=== PATIENT | male | born 1975 | race Caucasian/White ===

== ENCOUNTER 2018-10-10 12:44 | Emergency (ER) | payer MEDICAID ==
[~2018-10-10] VITALS: Ht 193 cm; Wt 81.0 kg
[~2018-10-10 12:44] MED LIST: ASPI-1265 PO; CARV-49 PO; FURO-150 PO; LISI-600 PO; POTA10TA10 PO; RIFA300C4 PO
[2018-10-10 13:34] VITALS: BP 111/81
[2018-10-10] MEDS ORDERED: ACET-3068 PO (15:29)
== END 2018-10-10 15:59 | disposition home or self-care (01) ==
LOC: ER 12:46
DX: S46.911A Strain of unspecified muscle, fascia and tendon at shoulder and upper arm level, right arm, initial encounter (principal); I50.9 Heart failure, unspecified; F12.90 Cannabis use, unspecified, uncomplicated; F15.90 Other stimulant use, unspecified, uncomplicated; Z88.8 Allergy status to other drugs, medicaments and biological substances; Z79.82 Long term (current) use of aspirin; Z79.899 Other long term (current) drug therapy; Z59.0 Homelessness; Z56.0 Unemployment, unspecified; V19.9XXA Pedal cyclist (driver) (passenger) injured in unspecified traffic accident, initial encounter; Y93.89 Activity, other specified; Y92.488 Other paved roadways as the place of occurrence of the external cause; Y99.8 Other external cause status
CPT/HCPCS: 29105; 73030; 99283

== ENCOUNTER 2019-05-22 22:07 | Inpatient (IN) | payer MEDICAID ==
[~2019-05-22] VITALS: Ht 190.5 cm; Wt 84.0 kg
[2019-05-22 22:50] LABS: BASOPHILS # (AUTO) 0.1 X10'3 (0-0.2); BASOPHILS % (AUTO) 1.1 % (0-1); EOSINOPHILS # (AUTO) 0.1 X10'3 (0-0.9); EOSINOPHILS % (AUTO) 1.4 % (0-6); HEMOGLOBIN 15.4 g/dl (14.0-17.9); LYMPHOCYTES # (AUTO) 1.3 X10'3 (1.1-4.8); LYMPHOCYTES % (AUTO) 20.8 % (21-51); MEAN CORPUSCULAR HGB CONC 33.4 g/dL (33.0-36.5); MEAN CORPUSCULAR VOLUME 89.8 FL (78-98); MEAN PLATELET VOLUME 8.1 FL (7.4-10.4); MONOCYTES # (AUTO) 0.3 X10'3 (0-0.9); MONOCYTES % (AUTO) 5.5 % (2-12); NEUTROPHILS # (AUTO) 4.3 X10'3 (1.8-7.7); NEUTROPHILS % (AUTO) 71.2 % (42-75); PLATELET COUNT 234 X10'3 (140-440); RED BLOOD COUNT 5.12 X10'6 (4.70-6.10); WHITE BLOOD COUNT 6.1 X10'3 (4.5-11.0)
[2019-05-22] MEDS ORDERED: metoprolol tartrate 1mg/ml inj IV ONE (23:00)
[2019-05-22 23:10] LABS: ALBUMIN 4.2 G/DL (3.4-5.0); ALKALINE PHOSPHATASE 177 IU/L (46-116); ANION GAP 11 (8-16); ASPARTATE AMINO TRANSFERASE 129 U/L (10-37); BILIRUBIN,TOTAL 2.4 MG/DL (0.1-1.0); BLOOD UREA NITROGEN 27 MG/DL (7-18); CHLORIDE 101 MMOL/L (99-107); CREATININE 1.04 MG/DL (0.60-1.10); GLUCOSE 94 MG/DL (70-104); POTASSIUM 4.6 MMOL/L (3.5-5.1); SODIUM 137 MMOL/L (135-145); TOTAL PROTEIN 8.3 G/DL (6.4-8.2); TROPONIN I 0.06 NG/ML (0.0-0.05); eGFR 78 ML/MIN
[2019-05-22 23:30] LABS: ALANINE AMINOTRANSFERASE 120 U/L (12-78); ETHANOL < 0.010 GM/DL (0.0-0.010)
[2019-05-22] MEDS ORDERED: CefTRIAXone 2gm/D5W 50ml 50 ML IV ONE (23:35)
[2019-05-22 23:40] LABS: CLARITY,URINE CLEAR (Clear); COLOR,URINE YELLOW (Yellow); GLUCOSE, URINE NEGATIVE (Neg); KETONES,URINE NEGATIVE (Neg); LEUKOCYTE ESTERASE ,URINE NEGATIVE (Neg); NITRITES, URINE NEGATIVE (Neg); OCCULT BLOOD,URINE NEGATIVE (Neg); PH,URINE 5.5 (4.8-8.0); PROTEIN,URINE NEGATIVE (Neg); UROBILINOGEN,URINE 0.2 E.U/dL (0.2-1.0)
[2019-05-22] MEDS ORDERED: VANCOMYCIN 1gm/H2O 200ml PB 200 ML IV ONE (23:40)
[2019-05-22 23:42] LABS: URINE AMPHETAMINE SCREEN POSITIVE (Neg); URINE BARBITUATE SCREEN NEGATIVE (Neg); URINE BENZODIAZEPINES SCREEN NEGATIVE (Neg); URINE CANNABINOID SCREEN POSITIVE (Neg); URINE COCAINE SCREEN NEGATIVE (Neg); URINE METHADONE SCREEN NEGATIVE (Neg); URINE OPIATE SCREEN NEGATIVE (Neg); URINE PHENCYCLIDINE SCREEN NEGATIVE (Neg)
[2019-05-22 23:48] LABS: UA COLLECTION TYPE CLN CATCH MIDSTREAM
[2019-05-23] MEDS ORDERED: potassium Cl 20 mEq SR tablet PO PRN ×2 (00:10)
[2019-05-23] MEDS ORDERED: magnesium hydroxide 30ml (MOM) UD suspension PO PRN (00:10)
[2019-05-23] MEDS ORDERED: magnesium Cl slow-release 64mg tablet PO PRN (00:10)
[2019-05-23] MEDS ORDERED: nitroGLYCERIN 0.4mg SUBLingual tab SL PRN (00:10)
[2019-05-23] MEDS ORDERED: potassium CL 10mEq/100ml bag 100 ML IV PRN ×2 (00:10)
[2019-05-23] MEDS ORDERED: mag hydrox/Alum hydrox/simeth 30ml oral suspension PO PRN (00:10)
[2019-05-23] MEDS ORDERED: ondansetron/PF 4mg/2ml inj IV PRN (00:10)
[2019-05-23] MEDS ORDERED: magnesium 4gm in 100ml NS 100 ML IV PRN (00:10)
[2019-05-23] MEDS ORDERED: acetaminophen 325mg tablet PO PRN ×2 (00:10)
[2019-05-23] MEDS ORDERED: magnesium 2GM in 50ml NS 50 ML IV PRN (00:10)
--- NOTE | 2019-05-23 00:45 | NUR ---
Patient in room ED 14. I have received report from Quincy JEREZ and had the opportunity to ask questions and assume patient care.
[2019-05-23] MEDS ORDERED: aspirin 81mg tab.chew PO ONE (00:55)
[2019-05-23] MEDS ORDERED: enoxaparin 60mg/0.6ml syringe SUBCUT ONE (00:55)
[2019-05-23 01:00] VITALS: BP 115/96
[2019-05-23] MEDS ORDERED: nicotine 21mg patch - 24 hr TD ONE (01:00)
[2019-05-23] MEDS ORDERED: ipratropium/albuterol 3ml nebule NEB PRN (01:00)
[2019-05-23] MEDS: LORazepam 2 mg/ml vial IV PRN ×2 (01:14→07:52)
--- NOTE | 2019-05-23 02:07 | NUR ---
Patient arrived to the floor at 0100. VSS. Placed on tele. MRSA swab collected. Oriented to room, unit policies, medication times, vital signs times, and meal times. 2 RN skin check performed.
--- NOTE | 2019-05-23 05:03 | NUR ---
PAGER ID: [phone] MESSAGE: Hans Chatman [id number]- Pt is reporting a lot of pain. Only has tylenol for pain. States he takes norco at home. -Ying JEREZ [id number]
[2019-05-23 05:09] LABS: ALBUMIN 3.3 G/DL (3.4-5.0); ANION GAP 8 (8-16); BLOOD UREA NITROGEN 24 MG/DL (7-18); BUN/CREATININE RATIO 26.1 (5.4-32.0); CALCIUM 8.6 MG/DL (8.5-10.1); CHLORIDE 104 MMOL/L (99-107); CREATININE 0.92 MG/DL (0.60-1.10); GLUCOSE 98 MG/DL (70-104); SODIUM 135 MMOL/L (135-145); TOTAL CARBON DIOXIDE 22.8 MMOL/L (24-32); eGFR 90 ML/MIN
[2019-05-23] MEDS: HYDROcodone/acetaminophen 5mg/325mg tablet PO PRN ×2 (05:26→11:05)
--- NOTE | 2019-05-23 06:26 | NUR ---
Patient in room PCU 3014. I have received report from Ying and had the opportunity to ask questions and assume patient care.
--- NOTE | 2019-05-23 06:28 | NUR ---
Problems reprioritized. Patient report given, questions answered & plan of care reviewed with Rebeca JEREZ.
[2019-05-23 07:00] VITALS: BP 127/94
[2019-05-23] MEDS: furosemide 40mg/4ml inj IV SCH ×2 (07:52→19:27)
[2019-05-23] MEDS: carvedilol 6.25mg tablet PO SCH ×2 (07:53→19:27)
[2019-05-23] MEDS: enoxaparin 40mg/0.4ml syringe SQ SCH (07:53)
[2019-05-23] MEDS: lisinopril 20mg tablet PO SCH (07:54)
[2019-05-23] MEDS: aspirin 81mg tab.chew PO SCH (07:55)
[2019-05-23] MEDS: K and/or MAG REPLACEMENT MC SCH ×2 (08:00→19:27)
[2019-05-23] MEDS ORDERED: FLU VACC QS2019-20 36MOS UP/PF 60 MCG/0.5 ML SYRINGE IMVAC ONE (10:00)
[2019-05-23] MEDS ORDERED: pneumococcal 23-VAL P-sac vacc 25 mcg/0.5ml vial IMVAC ONE (10:00)
--- NOTE | 2019-05-23 10:06 | NUR ---
3028B [facility] called and wanted to make sure you were aware of a new 5 mm nodule in the right lower lobe F/U recommended. Rebeca JEREZ [id number]
[2019-05-23 11:00] VITALS: BP 119/80
[2019-05-23 15:00] VITALS: BP 121/83
[2019-05-23] MEDS: LORazepam 1 MG tablet PO PRN (17:47)
[2019-05-23 18:00] VITALS: BP 128/83
--- NOTE | 2019-05-23 18:10 | NUR ---
Patient in room PCU 3028. I have received report from Rebeca JEREZ and had the opportunity to ask questions and assume patient care.
--- NOTE | 2019-05-23 18:25 | NUR ---
Problems reprioritized. Patient report given, questions answered & plan of care reviewed with Ying.
--- NOTE | 2019-05-23 20:20 | NUR ---
PAGER ID: [phone] MESSAGE: Hans Chatman [id number]- Pt just had a run of wide complex SVT at a rate of about 160 that lasted approximately 15 seconds. Pt is asymptomatic at this time. -Ying JEREZ [id number]
[2019-05-23 22:00] VITALS: BP 114/75
[2019-05-24 03:00] VITALS: BP 103/70
[2019-05-24 05:11] LABS: BASOPHILS # (AUTO) 0.1 X10'3 (0-0.2); EOSINOPHILS # (AUTO) 0.1 X10'3 (0-0.9); EOSINOPHILS % (AUTO) 1.7 % (0-6); LYMPHOCYTES # (AUTO) 1.7 X10'3 (1.1-4.8); MEAN CORPUSCULAR HEMOGLOBIN 30.3 PG (27.0-31.0); MEAN PLATELET VOLUME 8.1 FL (7.4-10.4); MONOCYTES # (AUTO) 0.5 X10'3 (0-0.9); WHITE BLOOD COUNT 6.1 X10'3 (4.5-11.0)
[2019-05-24 05:15] LABS: HEMATOCRIT 40.6 % (42.0-52.0); LYMPHOCYTES % (AUTO) 27.3 % (21-51); MEAN CORPUSCULAR HGB CONC 34.4 g/dL (33.0-36.5); MONOCYTES % (AUTO) 7.5 % (2-12); NEUTROPHILS # (AUTO) 3.8 X10'3 (1.8-7.7); NEUTROPHILS % (AUTO) 62.5 % (42-75); PLATELET COUNT 221 X10'3 (140-440); RED BLOOD COUNT 4.61 X10'6 (4.70-6.10); RED CELL DISTRIBUTION WIDTH 14.9 % (11.5-14.5)
[2019-05-24 05:25] LABS: ALBUMIN 3.2 G/DL (3.4-5.0); ANION GAP 9 (8-16); BLOOD UREA NITROGEN 27 MG/DL (7-18); CALCIUM 8.5 MG/DL (8.5-10.1); CHLORIDE 103 MMOL/L (99-107); CREATININE 1.08 MG/DL (0.60-1.10); GLUCOSE 95 MG/DL (70-104); POTASSIUM 3.8 MMOL/L (3.5-5.1); SODIUM 136 MMOL/L (135-145); TOTAL CARBON DIOXIDE 24.2 MMOL/L (24-32); eGFR 75 ML/MIN
[2019-05-24 06:00] VITALS: BP 118/88
--- NOTE | 2019-05-24 06:30 | NUR ---
Problems reprioritized. Patient report given, questions answered & plan of care reviewed with Pamela JEREZ.
--- NOTE | 2019-05-24 06:45 | NUR ---
Patient in room PCU 3028. I have received report from Ying JEREZ and had the opportunity to ask questions and assume patient care.
[2019-05-24] MEDS: HYDROcodone/acetaminophen 5mg/325mg tablet PO PRN ×2 (07:12→18:19)
[2019-05-24] MEDS: enoxaparin 40mg/0.4ml syringe SQ SCH (08:39)
[2019-05-24] MEDS: furosemide 40mg/4ml inj IV SCH ×2 (08:39→19:44)
[2019-05-24] MEDS: aspirin 81mg tab.chew PO SCH (08:42)
[2019-05-24] MEDS: lisinopril 20mg tablet PO SCH (08:42)
[2019-05-24] MEDS: carvedilol 6.25mg tablet PO SCH ×2 (08:42→19:44)
[2019-05-24] MEDS: K and/or MAG REPLACEMENT MC SCH ×2 (08:50→20:00)
[2019-05-24 11:00] VITALS: BP 97/71
[2019-05-24 18:30] VITALS: BP 93/62
--- NOTE | 2019-05-24 18:55 | NUR ---
Patient in room PCU 3028b. I have received report from MERI Santiago and had the opportunity to ask questions and assume patient care. Patient stable at this time and will continue to monitor closely.
[2019-05-24] MEDS: LORazepam 1 MG tablet PO PRN (20:03)
[2019-05-24 23:00] VITALS: BP 95/65
[2019-05-25 03:00] VITALS: BP 102/70
[2019-05-25 05:18] LABS: EOSINOPHILS # (AUTO) 0.1 X10'3 (0-0.9); EOSINOPHILS % (AUTO) 2.5 % (0-6); HEMOGLOBIN 14.4 g/dl (14.0-17.9); LYMPHOCYTES # (AUTO) 1.8 X10'3 (1.1-4.8); MEAN CORPUSCULAR VOLUME 87.7 FL (78-98)
[2019-05-25 05:22] LABS: BASOPHILS % (AUTO) 0.3 % (0-1); HEMATOCRIT 41.5 % (42.0-52.0); LYMPHOCYTES % (AUTO) 34.2 % (21-51); MEAN CORPUSCULAR HEMOGLOBIN 30.4 PG (27.0-31.0); MEAN CORPUSCULAR HGB CONC 34.7 g/dL (33.0-36.5); MEAN PLATELET VOLUME 8.3 FL (7.4-10.4); MONOCYTES # (AUTO) 0.5 X10'3 (0-0.9); MONOCYTES % (AUTO) 10.3 % (2-12); NEUTROPHILS # (AUTO) 2.8 X10'3 (1.8-7.7); NEUTROPHILS % (AUTO) 52.7 % (42-75); PLATELET COUNT 255 X10'3 (140-440); RED BLOOD COUNT 4.74 X10'6 (4.70-6.10); RED CELL DISTRIBUTION WIDTH 14.9 % (11.5-14.5); WHITE BLOOD COUNT 5.3 X10'3 (4.5-11.0)
[2019-05-25 05:30] LABS: ALBUMIN 3.4 G/DL (3.4-5.0); ANION GAP 7 (8-16); BLOOD UREA NITROGEN 33 MG/DL (7-18); BUN/CREATININE RATIO 32.7 (5.4-32.0); CALCIUM 8.8 MG/DL (8.5-10.1); CHLORIDE 102 MMOL/L (99-107); CREATININE 1.01 MG/DL (0.60-1.10); GLUCOSE 89 MG/DL (70-104); MAGNESIUM 2.1 MG/DL (1.5-2.4); SODIUM 135 MMOL/L (135-145); eGFR 81 ML/MIN
[2019-05-25 06:00] VITALS: BP 107/77
--- NOTE | 2019-05-25 06:37 | NUR ---
Problems reprioritized. Patient report given, questions answered & plan of care reviewed with MERI MICHAUD.
--- NOTE | 2019-05-25 07:02 | NUR ---
Patient in room PCU 3028B. I have received report from Diallo JEREZ and had the opportunity to ask questions and assume patient care.
[2019-05-25] MEDS: K and/or MAG REPLACEMENT MC SCH (08:00)
[2019-05-25] MEDS: carvedilol 6.25mg tablet PO SCH (08:21)
[2019-05-25] MEDS: furosemide 40mg/4ml inj IV SCH (08:21)
[2019-05-25] MEDS: aspirin 81mg tab.chew PO SCH (08:22)
[2019-05-25] MEDS: lisinopril 20mg tablet PO SCH (08:22)
[2019-05-25] MEDS: enoxaparin 40mg/0.4ml syringe SQ SCH (08:23)
[2019-05-25] MEDS: LORazepam 1 MG tablet PO PRN (08:31)
[2019-05-25 11:00] VITALS: BP 98/67
--- NOTE | 2019-05-25 13:35 | NUR ---
Relieved for break, report given to tio Driscoll RN, to assume care for 30 mins
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
[2019-05-25] MEDS: LORazepam 2 mg/ml vial IV PRN (14:15)
--- NOTE | 2019-05-25 14:21 | NUR ---
Reassumed care of patient from relief RN
[2019-05-25 15:00] VITALS: BP 99/73
--- NOTE | 2019-05-25 18:45 | NUR ---
Per MD order, patient is stable for discharge home. Patient has been fitted with lifevest and given instructions by them. Discharge packet printed and reviewed with patient and family at bedside. All questions answered. No new prescriptions. IV removed, tele monitor removed. All belongings sent with patient. Patient declined wheelchair escort, ambulatory out of unit without difficulty. Patient discharged home with family, all belongings sent with patient.
== END 2019-05-25 18:00 | disposition home or self-care (01) | DRG 194 ==
LOC: ER 22:08 → ED HOLD 05-23 00:29 → PCU 3S 05-23 00:59
PROVIDERS: ADMIT Hospitalist; ATTEND Family Medicine
DX: I50.23 Acute on chronic systolic (congestive) heart failure (principal); I24.8 Other forms of acute ischemic heart disease; I42.7 Cardiomyopathy due to drug and external agent; F17.210 Nicotine dependence, cigarettes, uncomplicated; F41.9 Anxiety disorder, unspecified; F12.10 Cannabis abuse, uncomplicated; Z59.0 Homelessness; Z28.21 Immunization not carried out because of patient refusal; Z88.8 Allergy status to other drugs, medicaments and biological substances; Z79.899 Other long term (current) drug therapy; Z79.82 Long term (current) use of aspirin
CPT/HCPCS: 36415; 71045; 80048; 80053; 80305; 80320; 81003; 83605; 83735; 83880; 84145; 84484; 85025; 87040; 87081; 93005; 93306; 94760; 96365; 99285; G0378; J0696; J1650; J1940; J2060; J3370; Q2037

== ENCOUNTER 2019-06-10 02:11 | Emergency (ER) | payer MEDICAID ==
[~2019-06-10] VITALS: Ht 193 cm; Wt 86.4 kg
[~2019-06-10 02:11] MED LIST changes: -RIFA300C4 PO
[2019-06-10] MEDS ORDERED: LORazepam 2 mg/ml vial IV ONE (02:35)
[2019-06-10 03:14] LABS: ALANINE AMINOTRANSFERASE 98 U/L (12-78); ALBUMIN 3.4 G/DL (3.4-5.0); ALKALINE PHOSPHATASE 134 IU/L (46-116); ANION GAP 15 (8-16); ASPARTATE AMINO TRANSFERASE 80 U/L (10-37); BILIRUBIN,TOTAL 2.3 MG/DL (0.1-1.0); BLOOD UREA NITROGEN 28 MG/DL (7-18); BUN/CREATININE RATIO 22.6 (5.4-32.0); CALCIUM 8.5 MG/DL (8.5-10.1); CHLORIDE 105 MMOL/L (99-107); CREATININE 1.24 MG/DL (0.60-1.10); POTASSIUM 4.2 MMOL/L (3.5-5.1); SODIUM 141 MMOL/L (135-145); TOTAL CARBON DIOXIDE 21.1 MMOL/L (24-32); TOTAL PROTEIN 6.8 G/DL (6.4-8.2); eGFR 64 ML/MIN
[2019-06-10 03:16] LABS: GLUCOSE 138 MG/DL (70-104)
[2019-06-10 03:18] LABS: BASOPHILS # (AUTO) 0.1 X10'3 (0-0.2); BASOPHILS % (AUTO) 1.3 % (0-1); EOSINOPHILS # (AUTO) 0.1 X10'3 (0-0.9); EOSINOPHILS % (AUTO) 1.8 % (0-6); HEMATOCRIT 41.2 % (42.0-52.0); LYMPHOCYTES # (AUTO) 1.9 X10'3 (1.1-4.8); LYMPHOCYTES % (AUTO) 26.9 % (21-51); MEAN CORPUSCULAR VOLUME 88.1 FL (78-98); MEAN PLATELET VOLUME 8.4 FL (7.4-10.4); MONOCYTES # (AUTO) 0.6 X10'3 (0-0.9); MONOCYTES % (AUTO) 8.3 % (2-12); NEUTROPHILS # (AUTO) 4.5 X10'3 (1.8-7.7); NEUTROPHILS % (AUTO) 61.7 % (42-75); PLATELET COUNT 202 X10'3 (140-440); RED BLOOD COUNT 4.68 X10'6 (4.70-6.10); RED CELL DISTRIBUTION WIDTH 15.3 % (11.5-14.5); WHITE BLOOD COUNT 7.2 X10'3 (4.5-11.0)
[2019-06-10] MEDS ORDERED: furosemide 10 MG/1 ML 10ml inj IV ONE (03:50)
[2019-06-10 07:02] VITALS: BP 124/78
== END 2019-06-10 07:08 | disposition home or self-care (01) ==
LOC: ER 02:12
DX: I50.9 Heart failure, unspecified (principal); F12.90 Cannabis use, unspecified, uncomplicated; F15.90 Other stimulant use, unspecified, uncomplicated; F10.99 Alcohol use, unspecified with unspecified alcohol-induced disorder; Z98.890 Other specified postprocedural states; Z59.0 Homelessness; Z56.0 Unemployment, unspecified; Z88.8 Allergy status to other drugs, medicaments and biological substances; Z79.82 Long term (current) use of aspirin; Z79.899 Other long term (current) drug therapy; Y90.9 Presence of alcohol in blood, level not specified
CPT/HCPCS: 36415; 71045; 80053; 83880; 84484; 85025; 93005; 96374; 96375; 99284; J1940; J2060

== ENCOUNTER 2019-11-01 11:26 | Emergency (ER) | payer MEDICAID ==
[~2019-11-01] VITALS: Ht 193 cm; Wt 81.8 kg
[2019-11-01 12:29] LABS: EOSINOPHILS # (AUTO) 0.1 X10'3 (0-0.9); MEAN PLATELET VOLUME 7.9 FL (7.4-10.4); MONOCYTES # (AUTO) 0.3 X10'3 (0-0.9)
[2019-11-01 12:31] LABS: BASOPHILS % (AUTO) 0.9 % (0-1); EOSINOPHILS % (AUTO) 2.1 % (0-6); HEMATOCRIT 42.2 % (42.0-52.0); HEMOGLOBIN 13.8 g/dl (14.0-17.9); LYMPHOCYTES # (AUTO) 1.1 X10'3 (1.1-4.8); LYMPHOCYTES % (AUTO) 21.9 % (21-51); MEAN CORPUSCULAR HEMOGLOBIN 30.9 PG (27.0-31.0); MEAN CORPUSCULAR HGB CONC 32.8 g/dL (33.0-36.5); MONOCYTES % (AUTO) 6.7 % (2-12); NEUTROPHILS # (AUTO) 3.5 X10'3 (1.8-7.7); NEUTROPHILS % (AUTO) 68.4 % (42-75); PLATELET COUNT 202 X10'3 (140-440); RED BLOOD COUNT 4.48 X10'6 (4.70-6.10); RED CELL DISTRIBUTION WIDTH 16.7 % (11.5-14.5); WHITE BLOOD COUNT 5.1 X10'3 (4.5-11.0)
[2019-11-01 12:36] LABS: PARTIAL THROMBOPLASTIN TIME 24 SECONDS (22-32)
[2019-11-01 13:11] LABS: ALANINE AMINOTRANSFERASE 91 U/L (12-78); ALBUMIN 3.6 G/DL (3.4-5.0); ALKALINE PHOSPHATASE 111 IU/L (46-116); ANION GAP 9 (8-16); ASPARTATE AMINO TRANSFERASE 91 U/L (10-37); BILIRUBIN,TOTAL 1.9 MG/DL (0.1-1.0); BLOOD UREA NITROGEN 23 MG/DL (7-18); BUN/CREATININE RATIO 14.9 (5.4-32.0); CALCIUM 8.7 MG/DL (8.5-10.1); CHLORIDE 103 MMOL/L (99-107); CREATININE 1.54 MG/DL (0.60-1.10); GLUCOSE 125 MG/DL (70-104); SODIUM 135 MMOL/L (135-145); TOTAL PROTEIN 7.3 G/DL (6.4-8.2); eGFR 50 ML/MIN
[2019-11-01] MEDS ORDERED: aspirin 325mg tablet PO ONE (13:25)
[2019-11-01] MEDS ORDERED: LORazepam 1 MG tablet PO ONE (13:25)
[2019-11-01 13:39] LABS: LIPASE 293 U/L (73-393)
[2019-11-01 14:52] VITALS: BP 131/95
== END 2019-11-01 14:55 | disposition home or self-care (01) ==
LOC: ER 11:26
DX: R07.9 Chest pain, unspecified (principal); R06.02 Shortness of breath; I50.9 Heart failure, unspecified; F12.90 Cannabis use, unspecified, uncomplicated; F15.90 Other stimulant use, unspecified, uncomplicated; Z98.890 Other specified postprocedural states; Z72.89 Other problems related to lifestyle; Z59.0 Homelessness; Z56.0 Unemployment, unspecified; Z88.8 Allergy status to other drugs, medicaments and biological substances; Z79.82 Long term (current) use of aspirin; Z79.899 Other long term (current) drug therapy
CPT/HCPCS: 36415; 71045; 80053; 83690; 83880; 84484; 85025; 85610; 85730; 93005; 99285

== ENCOUNTER 2019-11-07 23:42 | Inpatient (IN) | payer MEDICAID ==
[~2019-11-07] VITALS: Ht 193 cm; Wt 80.0 kg
[2019-11-08] VITALS (10 sets, daily range): BP systolic 100–124; BP diastolic 73–89
[2019-11-08] MEDS ORDERED: LORazepam 2 mg/ml vial IV ONE (00:15)
[2019-11-08 00:28] LABS: BASOPHILS % (AUTO) 0.4 % (0-1); EOSINOPHILS # (AUTO) 0.2 X10'3 (0-0.9); EOSINOPHILS % (AUTO) 2.2 % (0-6); HEMATOCRIT 42.6 % (42.0-52.0); LYMPHOCYTES # (AUTO) 1.6 X10'3 (1.1-4.8); LYMPHOCYTES % (AUTO) 21.2 % (21-51); MEAN CORPUSCULAR HEMOGLOBIN 31.1 PG (27.0-31.0); MEAN CORPUSCULAR HGB CONC 32.8 g/dL (33.0-36.5); MEAN CORPUSCULAR VOLUME 94.8 FL (78-98); MEAN PLATELET VOLUME 8.1 FL (7.4-10.4); MONOCYTES # (AUTO) 0.6 X10'3 (0-0.9); MONOCYTES % (AUTO) 7.4 % (2-12); NEUTROPHILS # (AUTO) 5.3 X10'3 (1.8-7.7); NEUTROPHILS % (AUTO) 68.8 % (42-75); PLATELET COUNT 216 X10'3 (140-440); RED CELL DISTRIBUTION WIDTH 16.3 % (11.5-14.5); WHITE BLOOD COUNT 7.6 X10'3 (4.5-11.0)
[2019-11-08 00:40] LABS: ALANINE AMINOTRANSFERASE 111 U/L (12-78); ALBUMIN 3.7 G/DL (3.4-5.0); ALBUMIN/GLOBULIN RATIO 1.1 (1.1-1.5); ALKALINE PHOSPHATASE 126 IU/L (46-116); ANION GAP 12 (8-16); ASPARTATE AMINO TRANSFERASE 80 U/L (10-37); BILIRUBIN,TOTAL 3.5 MG/DL (0.1-1.0); BLOOD UREA NITROGEN 23 MG/DL (7-18); BUN/CREATININE RATIO 21.5 (5.4-32.0); CALCIUM 8.6 MG/DL (8.5-10.1); CHLORIDE 109 MMOL/L (99-107); CREATININE 1.07 MG/DL (0.60-1.10); GLUCOSE 96 MG/DL (70-104); POTASSIUM 4.1 MMOL/L (3.5-5.1); SODIUM 142 MMOL/L (135-145); TOTAL PROTEIN 7.2 G/DL (6.4-8.2); eGFR 75 ML/MIN
--- NOTE | 2019-11-08 00:48 | NUR ---
piv in place , labs drawn, given ativan 1 mg iv. pt is polite and cooperative. reports still feeling like "i can t breath and i cant catch my breath" appears in no respiratory distress.
[2019-11-08] MEDS ORDERED: aspirin 81mg tab.chew PO ONE ×2 (02:30→02:35)
[2019-11-08] MEDS ORDERED: ondansetron/PF 4mg/2ml inj IV PRN (02:30)
[2019-11-08] MEDS ORDERED: magnesium 4gm in 100ml NS 100 ML IV PRN (02:30)
[2019-11-08] MEDS ORDERED: nitroGLYCERIN 0.4mg SUBLingual tab SL PRN ×2 (02:30)
[2019-11-08] MEDS ORDERED: magnesium Cl slow-release 64mg tablet PO PRN (02:30)
[2019-11-08] MEDS ORDERED: potassium Cl 20 mEq SR tablet PO PRN ×2 (02:30)
[2019-11-08] MEDS ORDERED: potassium CL 10mEq/100ml bag 100 ML IV PRN ×2 (02:30)
[2019-11-08] MEDS ORDERED: regadenoson 0.4mg/5ml syringe IV ONE (02:30)
[2019-11-08] MEDS ORDERED: magnesium hydroxide 30ml (MOM) UD suspension PO PRN (02:30)
[2019-11-08] MEDS ORDERED: morphine 2 MG/ML inj. syringe IV PRN (02:30)
[2019-11-08] MEDS ORDERED: aminophylline 250mg/10ml inj. IV PRN (02:30)
[2019-11-08] MEDS ORDERED: magnesium 2GM in 50ml NS 50 ML IV PRN (02:30)
[2019-11-08] MEDS ORDERED: mag hydrox/Alum hydrox/simeth 30ml oral suspension PO PRN (02:30)
[2019-11-08] MEDS ORDERED: acetaminophen 325mg tablet PO PRN (02:30)
[2019-11-08] MEDS ORDERED: metoprolol tartrate 1mg/ml inj IV PRN (02:30)
--- NOTE | 2019-11-08 02:32 | NUR ---
pt sleeping. awakened to drawn 2 hr trop. pt the back to sleep. current vss.
[2019-11-08] MEDS ORDERED: furosemide 40mg/4ml inj IV ONE (02:35)
[2019-11-08] MEDS ORDERED: CARV3.122 PO (02:40)
[2019-11-08] MEDS ORDERED: POTA8CAP20 PO (02:40)
--- NOTE | 2019-11-08 02:40 | NUR ---
med rec completed, awaiting hospitalist.
[2019-11-08] MEDS ORDERED: regadenoson 0.4mg/5ml syringe IV PRN (02:45)
--- NOTE | 2019-11-08 02:50 | NUR ---
Dr. Hopkins talking with Pt about admission. Pt is agreeable to this plan. Awaiting Hospitalist.
--- NOTE | 2019-11-08 05:16 | NUR ---
Pt awaiting ipa. Awakened to draw 6 hr trop and do 6 hr ekg. No cp and minimal sob. Pt has voided 2500 cc's over past 6 hrs.
--- NOTE | 2019-11-08 05:35 | NUR ---
Patient in room ED 13. I have received report from MERI Diane in the ER and had the opportunity to ask questions and assume patient care.
--- NOTE | 2019-11-08 05:49 | NUR ---
Arrived from in on [facility], was able to ambulate to hospital bed w/o problem.
--- NOTE | 2019-11-08 06:32 | NUR ---
Problems reprioritized. Patient report given, questions answered & plan of care reviewed with MERI Jones.
--- NOTE | 2019-11-08 06:39 | NUR ---
Patient in room PCU 3013. I have received report from Fanta JEREZ and had the opportunity to ask questions and assume patient care.
[2019-11-08] MEDS: furosemide 20MG tablet PO SCH ×2 (07:56→19:39)
[2019-11-08] MEDS: carVEDilol 3.125mg tablet PO SCH ×2 (07:57→19:39)
[2019-11-08] MEDS: aspirin 81mg tab.chew PO SCH (07:57)
[2019-11-08] MEDS: lisinopril 10 MG tablet PO SCH (07:57)
[2019-11-08] MEDS: K and/or MAG REPLACEMENT MC SCH ×2 (07:58→20:00)
[2019-11-08] MEDS ORDERED: metoprolol tartrate 12.5mg (1/2 tablet) PO SCH (08:00)
--- NOTE | 2019-11-08 10:00 | NUR ---
Patient off floor to Kimberli scan
--- NOTE | 2019-11-08 13:59 | NUR ---
Page to SUNG PAGER ID: [phone] MESSAGE: Karen MARTÍNEZ [id number]. Patient Nicodidier [id number]. Kimberli results are back, can we feed the patient? Please advise
--- NOTE | 2019-11-08 15:21 | NUR ---
PAGER ID: [phone] MESSAGE: Karen MARTÍNEZ [phone]. Patient Josseline [id number]. Lexiscan is complete, can we feed the patient? Patient is anxious to know.
--- NOTE | 2019-11-08 18:16 | NUR ---
Problems reprioritized. Patient report given, questions answered & plan of care reviewed with Deacon JEREZ. Patient stable at transfer.
--- NOTE | 2019-11-08 19:03 | NUR ---
Patient in room PCU 3013. I have received report from Karen JEREZ and had the opportunity to ask questions and assume patient care.
--- NOTE | 2019-11-08 19:26 | NUR ---
Upon meeting patient said they had 5/10 chest pain that they have had since they got here, patient requested pain medication. Pt w/o SOB, diaphoresis, or radiation, sternal palpation tender but patient said did not significantly increase pain level. Ordered stat EKG 12 lead and upon patient seeing arrival of EKG patient said "Oh i don't have chest pain" I proceeded to ask him about the chest pain he mentioned a moment prior and he responded "my pain is intermittent - It is caused by anxiety - from my SOB - I am just hungry and anxious - I don't have any chest pain or need pain medication, do you got any snacks?" I proceeded to educate the patient on our protocol for chest pain and told him to let us know if he has chest pain. Will d/c stat EKG for now and Will continue to monitor.
[2019-11-09] MEDS ORDERED: LORazepam 2 mg/ml vial IV ONE (02:50)
--- NOTE | 2019-11-09 02:50 | NUR ---
Patient c/o high anxiety and insomnia and is requesting IV Ativan. Discussed patient situation with Dr. Baumann. Doctor agreed for me to order IVP Ativan 1mg once. Will admin and continue to monitor.
[2019-11-09 03:00] VITALS: BP 108/78
[2019-11-09 05:30] LABS: BASOPHILS % (AUTO) 0.7 % (0-1); EOSINOPHILS # (AUTO) 0.2 X10'3 (0-0.9); EOSINOPHILS % (AUTO) 2.3 % (0-6); HEMATOCRIT 39.3 % (42.0-52.0); HEMOGLOBIN 13.3 g/dl (14.0-17.9); LYMPHOCYTES # (AUTO) 1.7 X10'3 (1.1-4.8); LYMPHOCYTES % (AUTO) 24.8 % (21-51); MEAN CORPUSCULAR HEMOGLOBIN 31.5 PG (27.0-31.0); MEAN CORPUSCULAR HGB CONC 33.9 g/dL (33.0-36.5); MEAN CORPUSCULAR VOLUME 93.1 FL (78-98); MONOCYTES # (AUTO) 0.4 X10'3 (0-0.9); MONOCYTES % (AUTO) 6.6 % (2-12); NEUTROPHILS # (AUTO) 4.4 X10'3 (1.8-7.7); NEUTROPHILS % (AUTO) 65.6 % (42-75); PLATELET COUNT 207 X10'3 (140-440); RED BLOOD COUNT 4.22 X10'6 (4.70-6.10); RED CELL DISTRIBUTION WIDTH 15.9 % (11.5-14.5); WHITE BLOOD COUNT 6.7 X10'3 (4.5-11.0)
[2019-11-09 05:51] LABS: ALANINE AMINOTRANSFERASE 84 U/L (12-78); ALBUMIN 3.1 G/DL (3.4-5.0); ALBUMIN/GLOBULIN RATIO 0.9 (1.1-1.5); ALKALINE PHOSPHATASE 109 IU/L (46-116); ANION GAP 11 (8-16); ASPARTATE AMINO TRANSFERASE 48 U/L (10-37); BILIRUBIN,TOTAL 3.6 MG/DL (0.1-1.0); BLOOD UREA NITROGEN 26 MG/DL (7-18); BUN/CREATININE RATIO 27.4 (5.4-32.0); CALCIUM 8.4 MG/DL (8.5-10.1); CHLORIDE 105 MMOL/L (99-107); CREATININE 0.95 MG/DL (0.60-1.10); GLUCOSE 96 MG/DL (70-104); PHOSPHORUS 4.2 MG/DL (2.3-4.5); SODIUM 138 MMOL/L (135-145); TOTAL CARBON DIOXIDE 21.7 MMOL/L (24-32); TOTAL PROTEIN 6.5 G/DL (6.4-8.2); eGFR 87 ML/MIN
--- NOTE | 2019-11-09 06:30 | NUR ---
Patient in room PCU 3013. I have received report from MERI Grey and had the opportunity to ask questions and assume patient care. Patient asleep in bed and in no acute distress.
--- NOTE | 2019-11-09 06:30 | NUR ---
Problems reprioritized. Patient report given, questions answered & plan of care reviewed with jocelyn JEREZ.
[2019-11-09 07:00] VITALS: BP 116/81
[2019-11-09] MEDS: K and/or MAG REPLACEMENT MC SCH (08:00)
[2019-11-09 08:28] VITALS: BP_SYST 116
[2019-11-09] MEDS: furosemide 20MG tablet PO SCH (08:28)
[2019-11-09] MEDS: aspirin 81mg tab.chew PO SCH (08:28)
[2019-11-09] MEDS: carVEDilol 3.125mg tablet PO SCH (08:28)
[2019-11-09] MEDS: lisinopril 10 MG tablet PO SCH (08:28)
[2019-11-09] MEDS ORDERED: SPIR25TA5 PO (09:43)
--- NOTE | 2019-11-09 11:00 | NUR ---
Patient stable for discharge per MD orders. All discharge instructions and questions answered appropriately. Patient belongings collected and sent with patient. New prescriptions called in to [facility] on [facility]. Patient declined having appointment made and will call and make his follow up appointment with Jose Palmer today, and will call Dr. Palomino today to set up an appointment as well. PIV discontinued and cannula intact. pvc monitor discontinued. Patient walked down to [facility] and left via private vehicle.
== END 2019-11-09 11:04 | disposition home or self-care (01) | DRG 194 ==
LOC: ER 23:42 → ED HOLD 11-08 02:29 → UNDOADMIN 11-08 03:09 → ED HOLD 11-08 03:09 → PCU 3S 11-08 06:00
PROVIDERS: ADMIT Family Medicine; ATTEND Family Medicine
PROC: 4A02XM4 Measurement of Cardiac Total Activity, External Approach (ICD-10-PCS; principal; 2019-11-08)
PROC: 3E073KZ Introduction of Other Diagnostic Substance into Coronary Artery, Percutaneous Approach (ICD-10-PCS; 2019-11-08)
DX: I50.23 Acute on chronic systolic (congestive) heart failure (principal); I42.7 Cardiomyopathy due to drug and external agent; K76.1 Chronic passive congestion of liver; B19.20 Unspecified viral hepatitis C without hepatic coma; F12.90 Cannabis use, unspecified, uncomplicated; F15.10 Other stimulant abuse, uncomplicated; F17.210 Nicotine dependence, cigarettes, uncomplicated; Z59.0 Homelessness; Z91.19 Patient's noncompliance with other medical treatment and regimen; Z88.8 Allergy status to other drugs, medicaments and biological substances; Z79.899 Other long term (current) drug therapy; Z79.82 Long term (current) use of aspirin; Z71.51 Drug abuse counseling and surveillance of drug abuser; Z71.6 Tobacco abuse counseling
CPT/HCPCS: 36415; 71045; 78452; 80053; 83735; 83880; 84100; 84484; 85025; 87081; 93005; 93017; 93306; A9500; G0378; J1940; J2060; J2785

== ENCOUNTER 2020-04-29 20:41 | Emergency (ER) | payer MEDICAID ==
[~2020-04-29] VITALS: Ht 193 cm; Wt 86.4 kg
[~2020-04-29 20:41] MED LIST changes: -CARV-49 PO; +CARV3.122 PO; -POTA10TA10 PO; +POTA8CAP20 PO; +SPIR25TA5 PO
[2020-04-29] MEDS ORDERED: LORazepam 2 mg/ml vial IV ONE (22:20)
[2020-04-29] MEDS ORDERED: furosemide 10 MG/1 ML 10ml inj IV ONE (22:20)
[2020-04-29 22:43] LABS: BASOPHILS # (AUTO) 0.1 X10'3 (0-0.2); EOSINOPHILS # (AUTO) 0.1 X10'3 (0-0.9); HEMATOCRIT 41.8 % (42.0-52.0); HEMOGLOBIN 13.9 g/dl (14.0-17.9); LYMPHOCYTES # (AUTO) 1.6 X10'3 (1.1-4.8); MEAN CORPUSCULAR HGB CONC 33.3 g/dL (33.0-36.5); MEAN PLATELET VOLUME 8.2 FL (7.4-10.4); MONOCYTES # (AUTO) 0.8 X10'3 (0-0.9); RED CELL DISTRIBUTION WIDTH 15.1 % (11.5-14.5); WHITE BLOOD COUNT 8.3 X10'3 (4.5-11.0)
[2020-04-29 22:44] LABS: BASOPHILS % (AUTO) 1.2 % (0-1); EOSINOPHILS % (AUTO) 1.7 % (0-6); LYMPHOCYTES % (AUTO) 19.4 % (21-51); MEAN CORPUSCULAR VOLUME 96.2 FL (78-98); MONOCYTES % (AUTO) 9.7 % (2-12); NEUTROPHILS # (AUTO) 5.6 X10'3 (1.8-7.7); PLATELET COUNT 192 X10'3 (140-440); RED BLOOD COUNT 4.34 X10'6 (4.70-6.10)
[2020-04-29 22:50] LABS: PARTIAL THROMBOPLASTIN TIME 23 SECONDS (22-32)
[2020-04-29 22:52] LABS: ALANINE AMINOTRANSFERASE 70 U/L (12-78); ALBUMIN 3.4 G/DL (3.4-5.0); ALBUMIN/GLOBULIN RATIO 0.9 (1.1-1.5); ALKALINE PHOSPHATASE 124 IU/L (46-116); ANION GAP 9 (8-16); ASPARTATE AMINO TRANSFERASE 45 U/L (10-37); BILIRUBIN,TOTAL 2.3 MG/DL (0.1-1.0); BLOOD UREA NITROGEN 27 MG/DL (7-18); BUN/CREATININE RATIO 22.1 (5.4-32.0); CALCIUM 9.2 MG/DL (8.5-10.1); CHLORIDE 108 MMOL/L (99-107); CREATININE 1.22 MG/DL (0.60-1.10); GLUCOSE 90 MG/DL (70-104); POTASSIUM 4.4 MMOL/L (3.5-5.1); SODIUM 141 MMOL/L (135-145); TOTAL PROTEIN 7.1 G/DL (6.4-8.2); eGFR 65 ML/MIN
[2020-04-30 03:45] VITALS: BP 120/96
== END 2020-04-30 03:47 | disposition home or self-care (01) ==
LOC: ER 20:42
DX: R06.02 Shortness of breath (principal); Q25.49 Other congenital malformations of aorta; R07.89 Other chest pain; R19.7 Diarrhea, unspecified; Z20.828 Contact with and (suspected) exposure to other viral communicable diseases; I11.0 Hypertensive heart disease with heart failure; I50.9 Heart failure, unspecified; F32.9 Major depressive disorder, single episode, unspecified; F12.90 Cannabis use, unspecified, uncomplicated; F15.90 Other stimulant use, unspecified, uncomplicated; Z98.890 Other specified postprocedural states; Z72.89 Other problems related to lifestyle; Z56.0 Unemployment, unspecified; Z88.8 Allergy status to other drugs, medicaments and biological substances; Z79.82 Long term (current) use of aspirin; Z79.899 Other long term (current) drug therapy
CPT/HCPCS: 36415; 71045; 80053; 83880; 84484; 85025; 85610; 85730; 87635; 93005; 96374; 96375; 99285; J1940; J2060

== ENCOUNTER 2020-05-16 13:34 | Emergency (ER) | payer MEDICAID ==
[~2020-05-16] VITALS: Ht 193 cm; Wt 84.1 kg
[2020-05-16 14:04] VITALS: BP 116/81
[2020-05-16 15:01] LABS: HEMATOCRIT 45.1 % (42.0-52.0); NEUTROPHILS # (AUTO) 3.5 X10'3 (1.8-7.7); RED CELL DISTRIBUTION WIDTH 14.3 % (11.5-14.5)
[2020-05-16 15:03] LABS: BASOPHILS # (AUTO) 0.1 X10'3 (0-0.2); BASOPHILS % (AUTO) 1.3 % (0-1); EOSINOPHILS # (AUTO) 0.1 X10'3 (0-0.9); HEMOGLOBIN 14.7 g/dl (14.0-17.9); LYMPHOCYTES % (AUTO) 19.1 % (21-51); MEAN CORPUSCULAR HGB CONC 32.7 g/dL (33.0-36.5); MONOCYTES # (AUTO) 0.6 X10'3 (0-0.9); MONOCYTES % (AUTO) 11.5 % (2-12); NEUTROPHILS % (AUTO) 67.1 % (42-75); PLATELET COUNT 195 X10'3 (140-440); RED BLOOD COUNT 4.74 X10'6 (4.70-6.10); WHITE BLOOD COUNT 5.3 X10'3 (4.5-11.0)
[2020-05-16 15:13] LABS: ALANINE AMINOTRANSFERASE 68 U/L (12-78); ALBUMIN 3.6 G/DL (3.4-5.0); ALBUMIN/GLOBULIN RATIO 0.9 (1.1-1.5); ALKALINE PHOSPHATASE 121 IU/L (46-116); ASPARTATE AMINO TRANSFERASE 68 U/L (10-37); BILIRUBIN,TOTAL 2.7 MG/DL (0.1-1.0); BLOOD UREA NITROGEN 27 MG/DL (7-18); BUN/CREATININE RATIO 23.1 (5.4-32.0); CALCIUM 9.5 MG/DL (8.5-10.1); CREATININE 1.17 MG/DL (0.60-1.10); GLUCOSE 107 MG/DL (70-104); LIPASE 182 U/L (73-393); TOTAL CARBON DIOXIDE 24.2 MMOL/L (24-32); TOTAL PROTEIN 7.6 G/DL (6.4-8.2); eGFR 68 ML/MIN
[2020-05-16 15:16] LABS: ANION GAP 11 (8-16); CHLORIDE 102 MMOL/L (99-107); POTASSIUM 4.9 MMOL/L (3.5-5.1); SODIUM 137 MMOL/L (135-145)
[2020-05-16] MEDS ORDERED: ONDA4TAB6 PO (15:52)
[2020-05-17] MEDS ORDERED: LORA-269 PO (03:07)
== END 2020-05-16 15:59 | disposition home or self-care (01) ==
LOC: ER 13:35
DX: F41.9 Anxiety disorder, unspecified (principal); R11.2 Nausea with vomiting, unspecified; I11.0 Hypertensive heart disease with heart failure; I50.9 Heart failure, unspecified; F32.9 Major depressive disorder, single episode, unspecified; F12.10 Cannabis abuse, uncomplicated; F15.10 Other stimulant abuse, uncomplicated; Z56.0 Unemployment, unspecified; Z88.8 Allergy status to other drugs, medicaments and biological substances; Z88.5 Allergy status to narcotic agent; Z79.899 Other long term (current) drug therapy
CPT/HCPCS: 36415; 71045; 80053; 83690; 85025; 93005; 99285

== ENCOUNTER 2020-05-17 01:41 | Emergency (ER) | payer MEDICAID ==
[~2020-05-17] VITALS: Ht 193 cm; Wt 87.0 kg
[~2020-05-17 01:41] MED LIST changes: +ONDA4TAB6 PO
[2020-05-17 01:50] VITALS: BP 124/86
[2020-05-17] MEDS ORDERED: LORazepam 1 MG tablet PO ONE (03:05)
[2020-05-17] MEDS ORDERED: LORA-269 PO (03:07)
== END 2020-05-17 03:22 | disposition home or self-care (01) ==
LOC: ER 01:42
DX: F41.9 Anxiety disorder, unspecified (principal); F12.10 Cannabis abuse, uncomplicated; R06.02 Shortness of breath; R42 Dizziness and giddiness; I11.0 Hypertensive heart disease with heart failure; I50.9 Heart failure, unspecified; F32.9 Major depressive disorder, single episode, unspecified; F17.200 Nicotine dependence, unspecified, uncomplicated; F15.90 Other stimulant use, unspecified, uncomplicated; Z98.890 Other specified postprocedural states; Z72.89 Other problems related to lifestyle; Z56.0 Unemployment, unspecified; Z88.8 Allergy status to other drugs, medicaments and biological substances; Z79.82 Long term (current) use of aspirin; Z79.899 Other long term (current) drug therapy
CPT/HCPCS: 99283

== ENCOUNTER 2021-11-17 03:59 | Emergency (ER) | payer MEDICAID ==
[~2021-11-17] VITALS: Ht 182.9 cm; Wt 75.0 kg
[~2021-11-17 03:59] MED LIST changes: -LISI-600 PO; +LISI20TA28 PO; +LORA-269 PO
[2021-11-17 05:45] LABS: ALANINE AMINOTRANSFERASE 56 U/L (12-78); ALBUMIN 3.2 G/DL (3.4-5.0); ALBUMIN/GLOBULIN RATIO 0.9 (1.1-1.5); ALKALINE PHOSPHATASE 158 IU/L (46-116); ANION GAP 5 (8-16); ASPARTATE AMINO TRANSFERASE 46 U/L (10-37); BILIRUBIN,TOTAL 3.2 MG/DL (0.1-1.0); BLOOD UREA NITROGEN 27 MG/DL (7-18); BUN/CREATININE RATIO 23.7 (5.4-32.0); CALCIUM 8.6 MG/DL (8.5-10.1); CHLORIDE 103 MMOL/L (99-107); CREATININE 1.14 MG/DL (0.60-1.10); GLUCOSE 126 MG/DL (70-104); POTASSIUM 3.9 MMOL/L (3.5-5.1); SODIUM 133 MMOL/L (135-145); TOTAL PROTEIN 6.9 G/DL (6.4-8.2); eGFR 69 ML/MIN
[2021-11-17 05:48] LABS: MEAN CORPUSCULAR HEMOGLOBIN 28.7 PG (27.0-31.0); RED CELL DISTRIBUTION WIDTH 16.1 % (11.5-14.5)
[2021-11-17 05:50] LABS: BASOPHILS # (AUTO) 0.1 X10'3 (0-0.2); BASOPHILS % (AUTO) 1.5 % (0-1); EOSINOPHILS # (AUTO) 0.1 X10'3 (0-0.9); EOSINOPHILS % (AUTO) 2.5 % (0-6); HEMATOCRIT 42.7 % (42.0-52.0); HEMOGLOBIN 13.9 g/dl (14.0-17.9); LYMPHOCYTES # (AUTO) 1.2 X10'3 (1.1-4.8); LYMPHOCYTES % (AUTO) 23.2 % (21-51); MEAN CORPUSCULAR HGB CONC 32.6 g/dL (33.0-36.5); MEAN PLATELET VOLUME 8.9 FL (7.4-10.4); MONOCYTES # (AUTO) 0.6 X10'3 (0-0.9); MONOCYTES % (AUTO) 10.5 % (2-12); NEUTROPHILS # (AUTO) 3.3 X10'3 (1.8-7.7); NEUTROPHILS % (AUTO) 62.3 % (42-75); PLATELET COUNT 150 X10'3 (140-440); RED BLOOD COUNT 4.85 X10'6 (4.70-6.10); WHITE BLOOD COUNT 5.4 X10'3 (4.5-11.0)
[2021-11-17] MEDS ORDERED: aspirin 325mg tablet PO ONE (06:10)
[2021-11-17] MEDS ORDERED: hydrOXYzine 25 MG tablet PO ONE (09:05)
[2021-11-17 09:18] VITALS: BP 122/92
== END 2021-11-17 09:28 | disposition home or self-care (01) ==
LOC: ER 04:00
DX: R07.89 Other chest pain (principal); I11.0 Hypertensive heart disease with heart failure; I50.9 Heart failure, unspecified; F12.90 Cannabis use, unspecified, uncomplicated; F15.90 Other stimulant use, unspecified, uncomplicated; Z56.0 Unemployment, unspecified; Z98.890 Other specified postprocedural states; Z79.899 Other long term (current) drug therapy; Z88.5 Allergy status to narcotic agent; Z79.82 Long term (current) use of aspirin
CPT/HCPCS: 36415; 71045; 80053; 83880; 84484; 85025; 93005; 99285; Q0177